=== PATIENT | female | born 1995 | race Caucasian/White ===

== ENCOUNTER 2022-05-14 15:56 | Emergency (ER) | payer OTHER ==
--- NOTE | 2022-05-14 17:18 | ED Physician Documentation ---
PD HPI URI - Stated complaint Stated Complaint: RT EAR PX, CHEST PX - Chief complaint Chief Complaint: Resp - History obtained from History obtained from: Patient - History of Present Illness Timing - onset: How many days ago (2) Timing duration: Days (2) Timing details: Gradual onset Pain level max: 5 Pain level now: 4 Associated symptoms: Fever, Ear pain (R ear), Nasal congestion, Rhinorrhea Contributing factors: Sick contact (son and daughter with RSV) Improves by: Rest Worsened by: Activity, Breathing Review of Systems Constitutional: reports: Fever, Chills Nose: reports: Rhinorrhea / runny nose, Congestion Cardiac: denies: Chest pain / pressure Respiratory: reports: Cough. denies: Dyspnea, Wheezing GI: denies: Abdominal Pain, Nausea, Vomiting, Diarrhea Skin: denies: Rash Musculoskeletal: denies: Neck pain, Back pain Neurologic: denies: Headache PD PAST MEDICAL HISTORY - Past Medical History Past Medical History: Yes Psych: Anxiety, ADD/ADHD - Allergies Allergies/Adverse Reactions: Allergies Allergy/AdvReac Type Severity Reaction Status Date / Time Penicillins Allergy Hives Verified 05/14/22 16:26 - Social History Does the pt smoke?: No Smoking Status: Never smoker PD ED PE NORMAL - Vitals Vital signs reviewed: Yes - General General: Alert and oriented X 3, No acute distress, Well developed/nourished - HEENT HEENT: PERRL, Ears normal, Moist mucous membranes, Pharynx benign - Neck Neck: Supple, no meningeal sign - Cardiac Cardiac: RRR, Strong equal pulses - Respiratory Respiratory: No respiratory distress, Clear bilaterally - Abdomen Abdomen: Soft, Non tender, Non distended - Derm Derm: Warm and dry - Extremities Extremities: No edema, No calf tenderness / cord - Neuro Neuro: Alert and oriented X 3 - Psych Psych: Normal mood, Normal affect Results - Vitals Vitals: Vital Signs - 24 hr 05/14/22 05/14/22 05/14/22 16:20 16:25 18:06 Temperature 36.3 C L 36.3 C L 37.6 C Heart Rate 108 H 108 H 82 Respiratory 18 18 16 Rate Blood Pressure 129/95 H 129/95 H 139/83 H O2 Saturation 100 100 100 05/14/22 19:23 Temperature 37.6 C Heart Rate 82 Respiratory 16 Rate Blood Pressure 139/83 H O2 Saturation 100 Oxygen O2 Source Room air - Labs Labs: Laboratory Tests 05/14/22 17:00 Nasal Adenovirus (PCR) NOT DETECTED Nasal B. parapertussis DNA (PCR) NOT DETECTED Nasal Coronavir 229E PCR NOT DETECTED Nasal Coronavir HKU1 PCR NOT DETECTED Nasal Coronavir NL63 PCR NOT DETECTED Nasal Coronavir OC43 PCR NOT DETECTED Nasal Enterovir/Rhinovir PCR NOT DETECTED Nasal Influenza B PCR NOT DETECTED Nasal Influenza A PCR NOT DETECTED Nasal Parainfluen 1 PCR NOT DETECTED Nasal Parainfluen 2 PCR NOT DETECTED Nasal Parainfluen 3 PCR NOT DETECTED Nasal Parainfluen 4 PCR NOT DETECTED Nasal RSV (PCR) DETECTED A Nasal B.pertussis DNA PCR NOT DETECTED Nasal C.pneumoniae (PCR) NOT DETECTED [place] Human Metapneumo PCR NOT DETECTED Nasal M.pneumoniae (PCR) NOT DETECTED Nasal SARS-CoV-2 (PCR) NOT DETECTED PD MEDICAL DECISION MAKING - ED course Complexity details: reviewed results, re-evaluated patient, considered differential, d/w patient ED course: Patient is well-appearing, nontoxic. Afebrile. No hypoxia. No respiratory distress. Tested positive for RSV. We will continue supportive care and have her follow-up with her doctor. No evidence of pneumonia or otitis media or infection that would require antibiotics. Patient counseled regarding signs and symptoms for which I believe and urgent re-evaluation would be necessary. Patient with good understanding of and agreement to plan and is comfortable going home at this time This document was made in part using voice recognition software. While efforts are made to proofread this document, sound alike and grammatical errors may occur. Departure - Departure Disposition: 01 Home, Self Care Clinical Impression: RSV infection Condition: Good Instructions: ED Viral Syndrome Follow-Up: Your,doctor in 1 week If not better [Other] Comments: Drink plenty of fluids and rest. Use Motrin or Tylenol as needed for any pain. There is no evidence of pneumonia or ear infection today. Return if you worsen. Discharge Date/Time: 05/14/22 19:23
[2022-05-14 18:07] VITALS: BP 139/83
[2022-05-14 18:34] LABS: B. PARAPERTUSSIS- RESP PCR PAN NOT DETECTED; B. PERTUSSIS- RESP PCR PANEL NOT DETECTED; C. PNEUMONIAE- RESP PCR PANEL NOT DETECTED; CORONAVIRUS 229E-RESP PCR NOT DETECTED; CORONAVIRUS HKU1-RESP PCR NOT DETECTED; CORONAVIRUS NL63-RESP PCR NOT DETECTED; CORONAVIRUS OC43-RESP PCR NOT DETECTED; HUMAN METAPNEUMOVIRUS NOT DETECTED; INFLUENZA A- RESP PCR PANEL NOT DETECTED; INFLUENZA B - RESP PCR PANEL NOT DETECTED; M. PNEUMONIAE- RESP PCR PANEL NOT DETECTED; PARAINFLUENZA VIRUS 1 NOT DETECTED; PARAINFLUENZA VIRUS 2 NOT DETECTED; PARAINFLUENZA VIRUS 3 NOT DETECTED; PARAINFLUENZA VIRUS 4 NOT DETECTED; RHINOVIRUS/ENTEROVIRUS NOT DETECTED; RSV- RESP PCR PANEL DETECTED; SARS-CoV-2 -RESP PCR PANEL NOT DETECTED
[2022-05-14] MEDS ORDERED: ACETAMINOPHEN 325 MG TABLET PO STA (18:40)
== END 2022-05-14 19:23 | disposition home or self-care (01) ==
LOC: ED 15:56
DX: H92.01 Otalgia, right ear (principal); R07.9 Chest pain, unspecified; B97.4 Respiratory syncytial virus as the cause of diseases classified elsewhere; Z20.822 Contact with and (suspected) exposure to COVID-19
CPT/HCPCS: 87633; 99282; 99283; A9270

== ENCOUNTER 2022-06-12 08:00 | Outpatient (CLI) | payer OTHER ==
--- NOTE | 2022-06-13 17:00 | XRAY Report ---
PROCEDURE: Ribs w/PA Chest LT INDICATIONS: L CHEST WALL PX TECHNIQUE: 3 views of the left ribs were acquired, along with a single view chest. COMPARISON: None FINDINGS: Surgical changes and devices: None. Bones and chest wall: No fractures or dislocations. No suspicious bony lesions. Overlying soft tis sues appear unremarkable. Lungs and pleura: No pleural effusions or pneumothorax. Lungs appear clear. Mediastinum: Mediastinal contours appear normal. Heart size is normal. IMPRESSION: No evidence acute bony abnormality of the left ribs. No evidence of acute pulmonary process. Reviewed by: Beau Velez MD on 06/13/2022 4:58 PM PDT Approved by: Beau Velez MD on 06/13/2022 4:58 PM PDT Station ID: [id number]
== END 2022-06-12 23:59 | disposition home or self-care (01) ==
LOC: DI.N 08:00
PROVIDERS: ATTEND Physician Assistant
DX: R07.89 Other chest pain (principal)

== ENCOUNTER 2023-01-30 08:10 | Outpatient (CLI) | payer OTHER | END 2023-01-30 08:11 | disposition home or self-care (01) | LOC: DI 08:10 | PROVIDERS: ATTEND Student in an Organized Health Care Education/Training Program | DX: R07.89 Other chest pain (principal); R00.2 Palpitations | CPT/HCPCS: 93306 ==